=== PATIENT | female | born 1955 | race Caucasian/White ===

== ENCOUNTER 2020-12-01 12:28 | Emergency (ER) | payer BC, OTHER ==
[2020-12-01 12:41] VITALS: BP 120/78; PULSE 91; TEMP 97; BMI 24.5
[2020-12-01] MEDS ORDERED: ACETAMINOPHEN 500 MG TABLET (FP) PO ONE (13:32)
[2020-12-01] MEDS ORDERED: ACETAMINOPHEN 325 MG TABLET (FP) ONE (13:34)
[2020-12-01] MEDS ORDERED: ACETAMINOPHEN 500 MG TABLET (FP) ONE ×2 (13:41→13:42)
== END 2020-12-01 13:45 | disposition home or self-care (01) ==
LOC: JER 12:28
PROC: 2W3DX1Z Immobilization of Left Lower Arm using Splint (ICD-10-PCS; principal; 2020-12-01)
DX: S62.102A Fracture of unspecified carpal bone, left wrist, initial encounter for closed fracture (principal)
CPT/HCPCS: 73110-TC-LT-FY; 73130-TC-LT-FY; 99284-25